=== PATIENT | male | born 1990 | race American Indian/Alaskan Native ===

== ENCOUNTER 2017-05-15 05:26 | Emergency (ER) | payer MEDICAID, OTHER ==
[2017-05-15 05:01] VITALS: BP 143/80
--- NOTE | 2017-05-15 05:24 | EDM.PDOC ---
ED HPI GENERAL MEDICAL PROBLEM - General Chief Complaint: ENT Problem Stated Complaint: IN BY [facility] Time Seen by Provider: 05/15/17 05:05 Source of Information: Reports: Patient History Limitations: Reports: Uncooperative - History of Present Illness INITIAL COMMENTS - FREE TEXT/NARRATIVE: ED via [facility] with c/o of severe tooth pain on right back molar. Tried tylenol and saltwater without relief. Admits to cannabis use to ease pain but didn't help. Denied any other drug or alcohol use. Last tylenol around midnight. Reports pain since then but started antibiotic yesterday becase of tooth. Had few left over dose of penicillin due to not finishing course as tooth felt better then. Quality: Reports: Sharp, Stabbing Right Lower Tooth/Teeth Pain Score (Numeric/FACES): 10 - Related Data Allergies Allergy/AdvReac Type Severity Reaction Status Date / Time spider bites and bee stings Allergy Hives Uncoded 05/15/17 05:01 Home Meds: Home Meds . [No Known Home Meds] 08/11/16 [History] Past Medical History - Past Health History Medical/Surgical History: Denies Medical/Surgical History Other Musculoskeletal History: Patient stated had 2nd vertberae fracture about three ribs , nose and left face about three years ago. Other Psychiatric History: None Other Dermatologic History: Patient stated break of the skin on the left knee due to a fall from the roof and might be infected. Social & Family History - Tobacco Use Smoking Status *Q: Current Every Day Smoker Years of Tobacco use: 5 Packs/Tins Daily: 0.3 Used Tobacco, but Quit: No Second Hand Smoke Exposure: Yes - Recreational Drug Use Recreational Drug Use: Yes Drug Use in Last 12 Months: Yes Recreational Drug Type: Reports: Marijuana/Hashish Recreational Drug Use Frequency: Weekly ED ROS ENT - Review of Systems Review Of Systems: ROS reveals no pertinent complaints other than HPI. ED EXAM, ENT - Physical Exam Exam: See Below Exam Limited By: No Limitations General Appearance: Alert, Anxious, Thin Ears: Normal External Exam, Normal TMs Nose: Injected Turbinates, Other (right nare clear scant musus, left with whitish thick adherent to anterior pelaez) Mouth/Throat: Normal Lips, Dental Abcess (right lower, mild gum swelling), Dental Pain, Dental Tenderness, Other (general poor dentation. rear molars upper and lower bilaterallly with moderate decay) Head: Atraumatic, Normocephalic Neck: Normal Inspection, Supple, Full Range of Motion Respiratory/Chest: No Respiratory Distress, Lungs Clear, Normal Breath Sounds Cardiovascular: Normal Peripheral Pulses, Regular Rate, Rhythm GI/Abdominal: Normal Bowel Sounds Extremities: Normal Inspection Neurological: Alert, Oriented Psychiatric: Anxious (thrashing on carat, restless) Skin: Warm, Dry, Intact, Normal Color Course - Vital Signs Last Recorded V/S: Last Vital Signs Temp 96.8 F 05/15/17 04:56 Pulse 79 05/15/17 04:56 Resp 20 05/15/17 04:56 BP 143/80 H 05/15/17 04:56 Pulse Ox 100 05/15/17 04:56 - Orders/Labs/Meds Meds: Medications Discontinued Medications Generic Name Dose Route Start Last Admin Trade Name Bethelq PRN Reason Stop Dose Admin Clindamycin HCl 300 mg 05/15/17 05:11 05/15/17 05:19 Cleocin PO 05/15/17 05:12 300 mg ONETIME ONE Administration Ibuprofen 800 mg 05/15/17 05:12 05/15/17 05:19 Motrin PO 05/15/17 05:13 800 mg ONETIME ONE Administration Lidocaine HCl 15 ml 05/15/17 05:04 Xylocaine 2% Viscous PO 05/15/17 05:05 ONETIME ONE Lidocaine HCl Confirm 05/15/17 05:16 05/15/17 05:24 Xylocaine 2% Viscous Administered 05/15/17 05:17 Not Given Dose 15 ml .ROUTE .STK-MED ONE Departure - Departure Time of Disposition: 05:37 Disposition: Home, Self-Care 01 Condition: Good Clinical Impression: Dental caries, Dental abscess - Discharge Information Instructions: Dental Abscess Referrals: PCP,Unobtain [Ordering Only Provider] - Forms: ED Department Discharge Additional Instructions: clindamycin 300mg 4 times daily for one week ibuprofen 800mg one every 8 hours as needed for severe pain follow up with dentist today room temperature liquids, chew on opposite side of mouth
[~2017-05-15 05:26] MED LIST: Clindamycin HCl 150 MG Cap PO ONE; Ibuprofen 800 MG Tab PO ONE; Lidocaine 2% Viscous Solution 15 ML Cup ONE; Lidocaine 2% Viscous Solution 15 ML Cup PO ONE
[2017-05-15] MEDS ORDERED: Lidocaine 2% Viscous Solution 15 ML Cup PO ONE (05:27)
== END 2017-05-15 05:50 | disposition home or self-care (01) ==
LOC: DL.ED 05:26
DX: K04.7 Periapical abscess without sinus (principal); K02.9 Dental caries, unspecified; F17.210 Nicotine dependence, cigarettes, uncomplicated; Z91.030 Bee allergy status
CPT/HCPCS: 99283; A9270

== ENCOUNTER 2017-10-14 11:31 | Emergency (ER) | payer MEDICAID, OTHER ==
[2017-10-14 12:04] VITALS: BP 130/99
[2017-10-14] MEDS ORDERED: Bacitracin Oint 1 GM U/D Packet TOP ONE (12:46)
[2017-10-14] MEDS ORDERED: Diphtheria,Pertussis(Acell),Tetanus Vaccine 0.5 ML SDV IM ONE (12:53)
[2017-10-14] MEDS ORDERED: Acetaminophen/HYDROcodone 325-5 MG Tab PO ONE (12:53)
--- NOTE | 2017-10-14 12:53 | EDM.PDOC ---
ED HPI GENERAL MEDICAL PROBLEM - General Chief Complaint: Laceration Stated Complaint: [id number] CUT FINGER Time Seen by Provider: 10/14/17 12:47 Source of Information: Reports: Patient History Limitations: Reports: No Limitations - History of Present Illness INITIAL COMMENTS - FREE TEXT/NARRATIVE: Patient was utilizing a food preparation device slicing potatoes when he accidentally cut his right thumb distal tip. Sustained avulsion laceration distal thumb. Apply direct pressure. Presents to the ER. Unsure on immunization status Onset: Today Duration: Minutes: Location: Reports: Upper Extremity, Right Quality: Reports: Sharp Severity: Mild Right 1-Thumb Pain Score (Numeric/FACES): 10 - Related Data Allergies Allergy/AdvReac Type Severity Reaction Status Date / Time spider bites and bee stings Allergy Hives Uncoded 10/14/17 11:58 Home Meds: Home Meds . [No Known Home Meds] 08/11/16 [History] Past Medical History - Past Health History Medical/Surgical History: Denies Medical/Surgical History Other Musculoskeletal History: Patient stated had 2nd vertberae fracture about three ribs , nose and left face about three years ago. Other Psychiatric History: None Other Dermatologic History: Patient stated break of the skin on the left knee due to a fall from the roof and might be infected. Social & Family History - Family History Family Medical History: Noncontributory - Tobacco Use Smoking Status *Q: Current Every Day Smoker Years of Tobacco use: 10 Packs/Tins Daily: 1 Used Tobacco, but Quit: No Second Hand Smoke Exposure: Yes - Caffeine Use Caffeine Use: Reports: Coffee, Soda - Recreational Drug Use Recreational Drug Use: No Drug Use in Last 12 Months: Yes Recreational Drug Type: Reports: Marijuana/Hashish Recreational Drug Use Frequency: Weekly ED ROS GENERAL - Review of Systems Review Of Systems: ROS reveals no pertinent complaints other than HPI. ED EXAM, SKIN/RASH Exam: See Below Exam Limited By: No Limitations General Appearance: Alert Skin: Other (Avulsion laceration of the distal tip of the right thumb. No tendinous involvement. Patient has full flexion and extension of the thumb) Comments: Bacitracin and sterile dressings applied to the thumb. Patient received 1 dose of [place] while in the emergency room Course - Vital Signs Last Recorded V/S: Last Vital Signs Temp 98.1 F 10/14/17 11:59 Pulse 85 10/14/17 11:59 Resp 18 10/14/17 11:59 BP 130/99 H 10/14/17 11:59 Pulse Ox 100 10/14/17 11:59 - Orders/Labs/Meds Orders: Active Orders 24 hr Category Date Time Status Vaccines to be Administered [RC] PER UNIT ROUTINE Care 10/14/17 12:46 Ordered Bacitracin [Bacitracin Oint 1 GM] Med 10/14/17 12:46 Once 1 dose TOP ONETIME ONE Meds: Medications Discontinued Medications Generic Name Dose Route Start Last Admin Trade Name Beata PRN Reason Stop Dose Admin Tetanus Immune Globulin 250 unit 10/14/17 12:46 Hypertet S/D IM 10/14/17 12:47 .ONCE ONE - Re-Assessments/Exams Free Text/Narrative Re-Assessment/Exam: Adult tetanus is updated 10/14/17 13:12 Departure - Departure Time of Disposition: 13:11 Disposition: Home, Self-Care 01 Condition: Good Clinical Impression: Avulsion of skin of finger without complication Qualifiers: Encounter type: initial encounter Qualified Code(s): S61.209A - Unspecified open wound of unspecified finger without damage to nail, initial encounter - Discharge Information Instructions: Laceration Care, Adult, [id number] Additional Instructions: Call clinic tomorrow for follow-up. You'll need dressing changes and monitoring of the avulsed skin. Do not start the antibiotic at this time. Monitor for swelling and redness. If increasing pain or swelling have prompt follow-up. Call or return if any problems questions or concerns - My Orders Last 24 Hours: My Active Orders 10/14/17 12:46 Vaccines to be Administered [RC] PER UNIT ROUTINE Bacitracin [Bacitracin Oint 1 GM] 1 dose TOP ONETIME ONE - Assessment/Plan Last 24 Hours: My Active Orders 10/14/17 12:46 Vaccines to be Administered [RC] PER UNIT ROUTINE Bacitracin [Bacitracin Oint 1 GM] 1 dose TOP ONETIME ONE
== END 2017-10-14 13:24 | disposition home or self-care (01) ==
LOC: DL.ED 11:31
DX: S61.001A Unspecified open wound of right thumb without damage to nail, initial encounter (principal); Z23 Encounter for immunization; F17.210 Nicotine dependence, cigarettes, uncomplicated; Z91.030 Bee allergy status; W27.4XXA Contact with kitchen utensil, initial encounter
CPT/HCPCS: 90471; 90715; 99283; A9270

== ENCOUNTER 2021-03-14 11:28 | Emergency (ER) | payer MEDICAID, OTHER | END 2021-03-14 12:31 | disposition left against medical advice (07) | LOC: DL.ED 11:28 | DX: Z53.21 Procedure and treatment not carried out due to patient leaving prior to being seen by health care provider (principal) ==

== ENCOUNTER 2023-06-24 06:25 | Emergency (ER) | payer MEDICAID ==
[2023-06-24 06:37] VITALS: BP 154/98
[2023-06-24] MEDS ORDERED: Take Home: Amoxicillin/Clavulanate K 875-125 MG Tab, 6 Tab Pack PO ONE (07:01)
[2023-06-24] MEDS ORDERED: Lidocaine 2% Jelly 10 ML Urojet MUCMEM ONE (07:02)
[2023-06-24] MEDS ORDERED: Acetaminophen 500 MG Tab PO ONE (07:04)
[2023-06-24 09:03] VITALS: PULSE 64
== END 2023-06-24 07:17 | disposition home or self-care (01) ==
LOC: DL.ED 06:25
DX: K04.7 Periapical abscess without sinus (principal); F17.210 Nicotine dependence, cigarettes, uncomplicated; Z91.030 Bee allergy status
CPT/HCPCS: 99282; A9270-GY